=== PATIENT | male | born 1975 | race Caucasian/White ===

== ENCOUNTER 2024-10-18 18:19 | Emergency (ER) | payer MEDICAID, OTHER ==
[~2024-10-18] VITALS: Ht 165.1 cm; Wt 77.2 kg
[2024-10-18 18:28] VITALS: RESP 19; O2SAT 95
[2024-10-18] MEDS: SODIUM CHLORIDE 0.9% 1,000 ML IV ONE (18:42)
[2024-10-18 18:49] VITALS: PULSE 111; RESP 22; TEMP 98.1
[2024-10-18] MEDS: NOREPINEPHRINE 8 MG/250ML KIT 250 ML IV ONE (18:51)
[2024-10-18 18:52] VITALS: BP 87/63
[2024-10-18] MEDS: NOREPINEPHRINE 8 MG/250ML KIT 250 ML IV SCH (18:52)
[2024-10-18] MEDS: EPINEPHrine HCL 1 MG/10 ML SYRG ONE (19:05)
--- NOTE | 2024-10-18 19:13 | ED.PDOC ---
CPR-HPI HPI Comments 48 y/o M with a history of CHF, methamphetamine use brought in by ambulance for witnessed cardiac arrest while at [facility] earlier today. Per EMS report, bystanders called [phone] at [phone] after the patient had a witnessed collapse in the [facility]. When paramedics arrived on scene at 5:52 p.m., the patient was in PEA with bystander CPR in progress. Patient had an approximate 25 minute of total downtime prior to arrival to the ER. Paramedics gave the patient epinephrine x4, calcium x1, bicarbonate x1, and a total of 3 mg of atropine for bradycardia. Paramedics did achieve Rosc for approximately 5 minutes prior to arrival to the ER. On arrival to the ER, CPR was in progress and patient was being ventilated via BVM via LMA. Chief Complaint: CPR Time Seen by MD: 18:19 Primary Care Provider: UNKNOWN Reviewed Notes: Nurses Notes, Medications, Allergies Allergies: Coded Allergies: UNOBTAINABLE (Unverified , 10/18/24) Information Source: Emergency Med Personnel Mode of Arrival: EMS Timing: Minutes Duration: Total time prior hopital: (25 minutes ) Onset: At rest, Witnessed Available Hx: Unknown Inital rhythm: PEA Past Medical History PAST MEDICAL HISTORY: CHF Surgical History: Unknown, Unobtainable Family History Family History: Unknown, Unobtainable Social History Smoker: Unknown, Unobtainable Alcohol: Unknown, Unobtainable Drugs: Methamphetamine, Unknown, Unobtainable Lives In: Home All Other Systems: Reviewed and Negative (Unobtainable given patient's condition) Physical Exam General Appearance: Other (Unresponsive, pupils 3 mm and unreactive, being ventilated via bag-valve mask, GCS three, cardiac exam without any heart sounds, no palpable pulse, in PEA with CPR ongoing) HEENT: Other (Eyes 3 mm and unreactive, LMA in place with bloody sputum in oropharynx) Neck: Other (Normal external exam) Respiratory: Other (Being ventilated via bag-valve mask via LMA, no spontaneous breathing) Cardiovascular: Other (No palpable pulse, no heart sounds on auscultation) Breast Exam: Deferred Gastrointestinal: Other (Moderately distended, no signs of trauma) Genitalia: Other (Normal external exam) Pelvic: Deferred Rectal: None Extremities: No pedal edema Neurologic: Other (Unresponsive, GCS three, limited neuro exam given patient's condition) Cerebellar Function: Unable to Test Reflexes: NOT DONE Skin: Mottled Lymphatic: NOT DONE EKG EKG : Comments EKG done during a brief period of ROSC with a evidence of possible anterior STEMI, I discussed the case with from Cardiology who planned to take the patient to the terrazzo laborer however patient went into cardiac arrest and time of was called Was a procedure done? Was a procedure done?: Yes Sedation Sedation?: No Central Line Recorder of insertion practice: Basketball Commentator Occupation of shearing machine feeder: Attending Physician Indication: Hypotension, Volume resuscitation Basketball Commentator performed hand hygien: Yes Insertion site: Right, Femoral Central line catheter type: Pdz-[id number]-[id number] dialysis Number of lumens: 3 Informed consent obtained: No Risks/benefits/alt described: No Notes Placed emergently during cardiac arrest Intubation Indication: Respiratory Insufficiency, Airway Protection Prep: No Preoxygenation Pretreated with: Nothing Medicated with: Nothing Intubation Approach: Orotracheal (8.0) Intubation size: cm (26) Informed consent obtained: No Risks/benefits/alt described: No Differential Dx CPR Differential Diagnosis: Cardiopulmonary arrest, Electrolyte disorder, Heart Block, Myocardial Infarction, Pulmonary Embolus, Respiratory Failure X-Ray, Labs, Meds, VS Vital Signs Date Time Temp Pulse Resp B/P (MAP) Pulse Ox O2 Delivery O2 Flow Rate FiO2 10/18/24 18:52 87/63 10/18/24 18:49 98.1 111 22 87/63 (71) 98.1 10/18/24 18:34 70 10/18/24 18:28 19 95 Mechanical Ventilator+ 100 100 10/18/24 18:19 98.1 98.1 Current Medications Medications (Trade) Dose Ordered Sig/Kashif Route Start Time Stop Time Status Last Admin Norepinephrine Bitartrate 250 ml @ 3.75 mls/hr Q24H IV 10/18/24 18:45 10/18/24 18:52 Sodium Chloride 1,000 ml @ 1,000 mls/hr Q1H ONCE IV 10/18/24 18:45 10/18/24 19:44 DC 10/18/24 18:42 X-Ray, Labs, Meds, VS Comment 48-year-old male with a history of CHF and methamphetamine use here today status post cardiac arrest. See nursing notes for details and timing of medication administration. Briefly, patient with a proximally 25 minutes of downtime in the field, arrived to the ER with CPR in progress. Patient was given approximately epinephrine times 11, bicarbonate x3, calcium x3, atropine x3 mg total between his resuscitation in the ER and in the field by paramedics. Patient was coded for approximately 45 minutes total in the ER alone. Patient's presented to the ER afterwards and I had a discussion with her and social media campaign manager regarding the next steps. Patient reacted appropriately and was appreciative of our efforts today. Thanked myself and the rest of the team and gave me a hug. I gave the patient my condolences, answering questions, and allowed her a moment to process the situation. Time of 1ST Reevaluation: 19:03 Reevaluation 1ST: Patient Education/Counseling: Pt Unresponsive Family Education/Counseling: No Family Present Departure 1 Departure Time of Disposition: 19:03 Impression: Primary Impression: Cardiac arrest Additional Impressions: History of methamphetamine use History of CHF (congestive heart failure) Disposition: 20 Condition: Other ( ) Critical Care Note Critical Care Time?: Yes (30 min-critical care time only) Heart Score Heart Score: Heart Score Response (Comments) Value History N/A 0 EKG N/A 0 Age N/A 0 Risk Factors N/A 0 Troponin N/A 0 Total 0 Stability Stability form required: No I personally scribed for BEVERLEY GREENWOOD MD ([email or web address]) on 10/18/24 at 19:13. Electronically submitted by [place] [email or web address]). BEVERLEY GREENWOOD MD Oct 18, 2024 19:13
--- NOTE | 2024-10-18 19:55 | RESUS ---
CODE BLUE ASSESSSMENT History of Events History of Events: PT BIBA WITH CPR IN PROGRESS. PT WAS AT [facility] WHEN HE COLLAPSED, WITNESSED BY . ROSC ACHEIVED IN ROUTE BUT LOST PULSES AGAIN AT 1815. TOTAL OF 4 EPI GIVEN BY EMS. IO PLACED TO LEFT LOWER LEG BY EMS. ONLY KNOWN PMH OF CHF AND PT WAS A SMOKER. PT ALSO HAD ST ELEVATION IN LEADS V3 AND V4 IN ROUTE. Initial Information Date: Oct 18, 2024 Time: 18:18 Location of Arrest: In Field Arrest Witnessed: Yes CPR started initial time: 18:15 CPR started by whom: EMS Pre-Hospital Care: ACLS Type of arrest: Cardiac Spontaneous Respirations: No Pulse Present: No Monitoring: Pulse Oximetry, Capnography, Telemetry Crash Cart Opened and Supplies: Yes Airway Ventilation Breathing at Onset: Assisted Oxygen Delivery Method: Ambu-Bag Artificial Ventilation: Bag/Endo tube Intubation Time: 18:21 Intubation Size: 8.0 cuffed Intubated by: DR GREENWOOD Intubation Attempts: 1 Intubated orally: Yes Tube secured at: 26 Circulation Circulation #1: Time: 18:20 Pulse Rate (adult): 0 Blood Pressure Systolic: 0 Blood Pressure Diastolic: 0 Circulation #2: Time: 18:27 Pulse Rate (adult): 0 Blood Pressure Systolic: 0 Blood Pressure Diastolic: 0 Temperature (Fahrenheit): 98.1 Circulation Comment: PT IN PEA Circulation #3: Time: 18:29 Pulse Rate (adult): 87 Blood Pressure Systolic: 270 Blood Pressure Diastolic: 210 Circulation Comment: ROSC ACHEIVED AT THIS TIME Circulation #4: Time: 18:42 Pulse Rate (adult): 0 Blood Pressure Systolic: 0 Blood Pressure Diastolic: 0 Circulation #5: Time: 18:49 Pulse Rate (adult): 120 Blood Pressure Systolic: 87 Blood Pressure Diastolic: 63 Circulation Comment: ROSC ACHEIVED AT THIS TIME Circulation #6: Time: 18:56 Pulse Rate (adult): 54 Circulation Comment: ROSC ACHEIVED AT THIS TIME Circulation #7: Time: 19:01 Pulse Rate (adult): 0 Blood Pressure Systolic: 0 Blood Pressure Diastolic: 0 Circulation #8: Time: 19:03 Pulse Rate (adult): 0 Blood Pressure Systolic: 0 Blood Pressure Diastolic: 0 Circulation #9: Time: 18:40 Pulse Rate (adult): 0 Circulation Comment: PT LOST PULSES AT THIS TIME. CPR RESUMED. Circulation #10: Time: 18:54 Pulse Rate (adult): 0 Circulation Comment: PT LOST PULSES AT THIS TIME. CPR RESUMED. Circulation #11: Time: 18:59 Pulse Rate (adult): 0 Circulation Comment: PT LOST PULSES AT THIS TIME. CPR RESUMED. Defibrillation Defbrillation : EKG Rhythm: V-Fibrillation Compressions: Device Time Defibrillator Shocked Pt.: 18:24 Defib. Joules: 200 Pulse Present: No Procedure - IV Procedure - IV : IV start time: 18:27 IV Side: Left IV Location: [place] Posterior IV Placed: RN IV Placed by TERESO BANDA IV Gauge: 20 IV Line Care: Saline Flush Procedure - Intraosseous Site of Intraosseous: Tibia nuzhat-medial Intraosseous inserted by: EMS IN THE FIELD Medications & Response Medications and Responses #1: Medication Time: 18:21 ADULT Medications Given ADULT: Epinephrine 1 mg Route of Administration: IO EKG Rhythm: PEA EKG Rhythm: PEA Medications and Responses #2: Medication Time: 18:21 ADULT Medications Given ADULT: Calcium Chloride 10 mL Route of Administration: IO EKG Rhythm: PEA EKG Rhythm: PEA Medications and Responses #3: Medication Time: 18:24 ADULT Medications Given ADULT: Epinephrine 1 mg Route of Administration: IO EKG Rhythm: PEA EKG Rhythm: PEA Medications and Responses #4: Medication Time: 18:26 ADULT Medications Given ADULT: Sodium Bacarbinate 50 meq Route of Administration: IO EKG Rhythm: PEA EKG Rhythm: PEA Medications and Responses #5: Medication Time: 18:27 ADULT Medications Given ADULT: Epinephrine 1 mg Route of Administration: IV EKG Rhythm: PEA EKG Rhythm: PEA Medications and Responses #6: EKG Rhythm: PEA EKG Rhythm: PEA Medications and Responses #7: Medication Time: 18:40 ADULT Medications Given ADULT: Epinephrine 1 mg Route of Administration: IV EKG Rhythm: PEA EKG Rhythm: PEA Medications and Responses #8: Medication Time: 18:43 ADULT Medications Given ADULT: Calcium Chloride 10 mL Route of Administration: IV Medications and Responses #9: Medication Time: 18:44 ADULT Medications Given ADULT: Sodium Bacarbinate 50 meq Route of Administration: IV Medications and Responses #10: Medication Time: 18:43 ADULT Medications Given ADULT: Epinephrine 1 mg Route of Administration: IV EKG Rhythm: Asystole EKG Rhythm: Asystole Medications and Responses #11: Medication Time: 18:47 ADULT Medications Given ADULT: Epinephrine 1 mg EKG Rhythm: Asystole EKG Rhythm: Asystole Medications and Responses #12: Medication Time: 18:54 ADULT Medications Given ADULT: Epinephrine 1 mg EKG Rhythm: PEA EKG Rhythm: 1st Degree HB Nurses Notes [place] Coma Scale Eye Opening: None (1) [place] Coma Scale Verbal: None (1) [place] Coma Scale Motor: None (1) [place] Total: 3 Nurses Notes - Comment: TIME OF ARRIVAL TO ER WAS 1818 ROSC ACHIEVED AT 1829. LOST PULSES AT 1840. CPR RESUMED. ROSC ACHEIVED AT 1849. LOST PULSES AT 1854. CPR RESUMED. ROSC ACHEIVED AT 1856. LOST PULSES AT 1859. CPR RESUMED. TOD AT 1903. Time Code Ended Time Code Ended: 19:03 Post Arrest Status: Outcome of code: Unsuccessful Patient pronounced by: DR GREENWOOD Time patient pronounced: 19:03 Code Team Present: MARIA ESTHER RT BLANCA BENJAMIN RN IGLESIA GREENWOOD Comment: NO EPINEPHRINE GIVEN BETWEEN [id number] DURING THIRD CODE BLUE PER DR GREENWOOD. Post Resuscitation Neurologica Pupil Size: 3 Comment: NON REACTIVE ANNETTA BURKETT Oct 18, 2024 19:55
--- NOTE | 2024-10-19 09:01 | ECG ---
[facility] Test Date: 2024-10-18 Test Time: 18:34:32 Pat Name: Celio Quinones Department: ER Room: Gender: M Quality Assurance Monitor: [place] : 1975 Requested By: EMERGENCY EMERGENCY Order Number: [id number] Reading MD: Angel Santos Measurements Intervals [place] Rate: 70 P: 0 [place]: 177 QRS: -76 QRSD: 126 T: 116 QT: 528 QTc: 570 Interpretive Statements Sinus rhythm IVCD, consider atypical RBBB LVH with IVCD, LAD and secondary repol abnrm Inferior infarct, old Anterior ST elevation, probably due to LVH Prolonged QT interval Electronically Signed On 10-21-2024 20:56:30 PDT by Angel Santos Please click the below link to view image of tracing.
== END 2024-10-19 07:21 ==
LOC: ER 18:19 → EDBD 18:19 → ER 10-19 07:21
DX: I46.9 Cardiac arrest, cause unspecified (principal); I50.9 Heart failure, unspecified; F15.90 Other stimulant use, unspecified, uncomplicated; Z79.899 Other long term (current) drug therapy
CPT/HCPCS: 31500; 36556; 36600; 82805; 82947; 92950; 93005; 99291; J0171